=== PATIENT | female | born 2000 | race Caucasian/White ===

== ENCOUNTER 2023-11-07 06:25 | Inpatient (IN) | payer OTHER ==
[2023-11-07] MEDS: ELECTROLYTE-148 SOLN 1,000 ML IV SCH (07:30)
[2023-11-07 07:56] LABS: EOS % 0.1 % (0-4.5); HEMATOCRIT 34.4 % (32.4-45.2); HEMOGLOBIN 11.5 GM/dL (10.7-15.3); LYMPH % 10.4 % (8-40); MCH 29.6 pg (25.7-33.7); MCHC 33.6 g/dl (32.0-36.0); MEAN PLT VOLUME 7.3 fl (7.5-11.1); MONO % 3.7 % (3.8-10.2); NEUT % 85.8 % (42.8-82.8); PLATELET COUNT 233 10^3/uL (134-434); WHITE BLOOD COUNT 11.4 K/mm3 (4.0-10.0)
[2023-11-07 08:07] LABS: CHLORIDE 105 mmol/L (98-107); POTASSIUM 3.8 mmol/L (3.5-5.1); SODIUM 137 mmol/L (136-145)
[2023-11-07 08:09] LABS: ANION GAP 7 mmol/L (4-13); BLOOD UREA NITROGEN 8.3 mg/dL (7-18); CALCIUM 8.8 mg/dL (8.5-10.1); CO2 25 mmol/L (21-32); GLUCOSE,RANDOM 97 mg/dL (74-106)
[2023-11-07 08:12] LABS: INR 0.99 (0.83-1.09); PROTHROMBIN TIME (PATIENT) 11.2 SEC (9.7-13.0)
[2023-11-07 08:14] LABS: CREATININE 0.6 mg/dL (0.55-1.3)
[2023-11-07 08:16] LABS: ACTIVATED PTT 27.2 SECONDS (25.2-36.5)
[2023-11-07 09:10] VITALS: BMI 23.8
[2023-11-07] MEDS ORDERED: NALOXONE HCL 0.4 MG/ML VIAL IVPUSH PRN (09:22)
[2023-11-07] MEDS ORDERED: BUPIVACAINE HCL/PF 0.25% (2.5MG/ML) 10 ML VIAL ONE (09:23)
[2023-11-07] MEDS ORDERED: FENTANYL/BUPIVACAINE/NS/PF - PCEA - 50 ML DISP.SYRIN EP ONE (09:34)
[2023-11-07] MEDS: FENTANYL/BUPIVACAINE/NS/PF - PCEA - 50 ML DISP.SYRIN EP SCH (09:40)
[2023-11-07] MEDS ORDERED: LIDOCAINE HCL 1% PRESERVATIVE FREE - 30ML VIAL ONE (13:57)
[2023-11-07] MEDS ORDERED: OXYTOCIN 30 UNITS in 0.9% NS 30 UNIT/500 ML INFUS.BAG IVPB ONE (13:57)
[2023-11-07] MEDS ORDERED: OXYTOCIN 20 UNITS in 0.9% NS 20 UNIT/1,000 ML INFUS.BAG IV ONE (15:25)
[2023-11-07] MEDS ORDERED: ACETAMINOPHEN 325 MG TABLET (FP) PO PRN (18:17)
[2023-11-07] MEDS ORDERED: WITCH HAZEL 50% (TUCKS) 40 PAD/JAR PAD TP PRN (18:17)
[2023-11-07] MEDS ORDERED: oxyCODONE HCL 5 MG TABLET PO PRN (18:17)
[2023-11-07] MEDS ORDERED: METHYLERGONOVINE MALEATE 0.2 MG/1 ML AMP IM PRN (18:17)
[2023-11-07 18:34] LABS: CORD BASE EXCESS -4.2 mmol/L (0-2); CORD HCO3 19.7 mmHg (20-29); CORD pH 7.407 (7.14-7.44)
[2023-11-07 18:39] LABS: CORD BASE EXCESS -5.1 mmol/L (0-2); CORD HCO3 20.4 mmHg (20-29); CORD PCO2 39.6 mmHg (30-78); CORD pH 7.33 (7.14-7.44)
[2023-11-07 18:50] VITALS: RESP 18
[2023-11-07] MEDS: IBUPROFEN 600 MG TABLET (FP) PO PRN (23:03)
[2023-11-07] MEDS: SENNOSIDES/DOCUSATE COMBO (SENNA PLUS) TABLET (UD) PO PRN (23:03)
[2023-11-08 07:01] LABS: BASO % 0.2 % (0-2.0); LYMPH % 16.1 % (8-40); MCH 29.2 pg (25.7-33.7); MCHC 32.3 g/dl (32.0-36.0); MEAN CELL VOLUME 90.2 fl (80-96); MEAN PLT VOLUME 7.7 fl (7.5-11.1); MONO % 6.8 % (3.8-10.2); NEUT % 76.9 % (42.8-82.8); PLATELET COUNT 219 10^3/uL (134-434); RBC 3.77 M/mm3 (3.60-5.2); RDW 14.3 % (11.6-15.6); WHITE BLOOD COUNT 15.6 K/mm3 (4.0-10.0)
[2023-11-08] MEDS: ELECTROLYTE-148 SOLN 1,000 ML IV SCH (12:34)
[2023-11-08] MEDS: OXYTOCIN 20 UNITS in 0.9% NS 20 UNIT/1,000 ML INFUS.BAG IV SCH (12:35)
[2023-11-08] MEDS: MEASLES,MUMPS&RUBELLA VACC/PF 0.5 ML VIAL SQ ONE (15:33)
[2023-11-09 09:29] VITALS: BP 104/66; PULSE 71; TEMP 98
[2023-11-09] MEDS: BENZOCAINE 20% 57 GM BOTTLE TP PRN (11:30)
[2023-11-09] MEDS: BENZOCAINE 28 GM HEMORRHOIDAL OINTMENT TP PRN (11:31)
[2023-11-09] MEDS: BISACODYL 10 MG SUPP.RECT RC PRN (11:31)
== END 2023-11-09 12:53 | disposition home or self-care (01) | DRG 560 ==
LOC: JLDR 06:25 → J3W 20:20
PROVIDERS: ADMIT Family Medicine; ATTEND Family Medicine
PROC: 10D07Z6 Extraction of Products of Conception, Vacuum, Via Natural or Artificial Opening (ICD-10-PCS; principal; 2023-11-07)
PROC: 0KQM0ZZ Repair Perineum Muscle, Open Approach (ICD-10-PCS; 2023-11-07)
PROC: 0W8NXZZ Division of Female Perineum, External Approach (ICD-10-PCS; 2023-11-07)
PROC: 3E0334Z Introduction of Serum, Toxoid and Vaccine into Peripheral Vein, Percutaneous Approach (ICD-10-PCS; 2023-11-07)
DX: O36.8130 Decreased fetal movements, third trimester, not applicable or unspecified (principal); O70.1 Second degree perineal laceration during delivery; O36.0930 Maternal care for other rhesus isoimmunization, third trimester, not applicable or unspecified; Z3A.39 39 weeks gestation of pregnancy; Z37.0 Single live birth
CPT/HCPCS: 36415; 36600; 80048; 82803; 85025; 85461; 85610; 85730; 86780; 86850; 86870; 86900; 86901; 88307-TC; 96372; J2790